=== PATIENT | female | born 1995 | race Caucasian/White ===

== ENCOUNTER 2025-02-05 11:28 | Emergency (ER) | payer MEDICAID ==
[2025-02-05 12:27] LABS: BASOPHILS ABSOLUTE AUTO 0.0 x10-3/uL (0.0-0.1); BASOPHILS PERCENT AUTO 0.6 % (0.2-1.5); EOSINOPHILS ABSOLUTE AUTO 0.1 x10-3/uL (0.0-0.8); EOSINOPHILS PERCENT AUTO 2.1 % (0.6-8.1); LYMPHOCYTES ABSOLUTE AUTO 1.3 x10-3/uL (1.0-4.4); LYMPHOCYTES PERCENT AUTO 22.4 % (18.4-52.1); MEAN PLATELET VOLUME 7.8 fL (7.1-12.4); MONOCYTES ABSOLUTE AUTO 0.5 x10-3/uL (0.3-1.0); MONOCYTES PERCENT AUTO 8.5 % (4.4-15.7); NEUTROPHILS ABSOLUTE AUTO 3.9 x10-3/uL (1.5-6.3); NEUTROPHILS PERCENT AUTO 66.4 % (30.8-76.2); PLATELET COUNT,PLT 254 x10(3)uL (151-488); RED BLOOD CELL COUNT 4.44 x10(6)uL (3.60-5.20); RED CELL DISTRIBUTION WIDTH 12.4 % (12.3-16.5); WHITE BLOOD CELL COUNT,WBC 5.8 x10-3/uL (3.0-10.3)
[2025-02-05 12:31] LABS: BLOOD UREA NITROGEN,BUN 6 mg/dL (7-18); CARBON DIOXIDE,CO2 27 mmol/L (21-32); CHLORIDE,CL 106 mmol/L (100-110); CREATININE 0.9 mg/dL (0.55-1.02); EST CRCL DRUG DOSING (CG) 77.30 mL/min; ESTIMATED GFR 89 mL/min (>60); GLUCOSE RANDOM 89 mg/dL (80-116); POTASSIUM,K 3.9 mmol/L (3.5-5.3); SODIUM,NA 140 mmol/L (135-145)
[2025-02-05 12:37] LABS: A/G RATIO 1.3; ALANINE AMINOTRANSFERASE,ALT 8 U/L (12-36); ASPARTATE AMNIOTRANSFERASE,AST 11 IU/L (5-25); BILIRUBIN TOTAL 0.7 mg/dL (0.1-1.3); PROTEIN TOTAL,TP 7.2 g/dL (6.0-8.0)
== END 2025-02-05 13:37 | disposition home or self-care (01) ==
LOC: FB.ED 11:28
DX: J20.9 Acute bronchitis, unspecified (principal); R09.1 Pleurisy; F17.210 Nicotine dependence, cigarettes, uncomplicated; F17.290 Nicotine dependence, other tobacco product, uncomplicated; Z79.899 Other long term (current) drug therapy
CPT/HCPCS: 36415; 71046; 80053; 85025; 86140; 87428-QW; 99284